=== PATIENT | female | born 1990 | race Caucasian/White ===

== ENCOUNTER 2020-12-10 07:54 | Inpatient (IN) ==
[2020-12-10] MEDS ORDERED: Buffered Lidocaine 1% SYRIN 1 ml INTRADERM ONE (09:01)
[2020-12-10] MEDS ORDERED: Lactated Ringers 1000 ml BAG 1,000 ML IV ONE (09:01)
[2020-12-10] MEDS ORDERED: Oxytocin in LR 0 UNITS/0 ML BAG IVPB ONE (09:39)
[2020-12-10 09:57] LABS: ABS Eosinophils 0.1 10^3/ul (0-0.6); ABS Lymphocytes 2.8 10^3/ul (1.0-4.8); ABS Monocytes 1.2 10^3/ul (0-0.8); ABS Neutrophils 18.3 10^3/ul (1.5-7.7); Eosinophil % 0.3 %; Hematocrit 40 % (35-47); Hemoglobin 13.7 g/dL (12.0-16.0); Lymphocyte % 12.3 %; Mean Corpuscular HGB Conc 35 g/dL (31-36); Mean Corpuscular Hemoglobin 33 pg (27-31); Mean Corpuscular Volume 95 fL (80-97); Mean Platelet Volume 8.2 fL (7.4-10.4); Platelet Count 309 10^3/uL (150-450); Red Blood Count 4.16 10^6 /uL (3.70-4.87); Red Cell Distribution Width 13 % (10-15); White Blood Count 22.3 10^3/uL (3.5-10.8)
[2020-12-10] MEDS ORDERED: Lactated Ringers 1000 ml BAG 1,000 ML IV SCH (10:00)
[2020-12-10 10:14] LABS: Urine Benzodiazepine Screen None Detected (None Detect); Urine Cannabinoids Screen None Detected (None Detect); Urine Opiates Screen None Detected (None Detect)
[2020-12-10] MEDS ORDERED: Witch Hazel PAD JAR TOPICAL PRN (10:40)
[2020-12-10] MEDS ORDERED: Dibucaine 1% OINT 28.35 GM TUBE PR PRN (10:40)
[2020-12-10] MEDS ORDERED: Lidocaine 1% VIAL 10 MG/ML VIAL ONE (11:00)
[2020-12-10] MEDS ORDERED: Ammonia Inhalant 1 EA AMP ONE (11:40)
[2020-12-11 07:42] LABS: ABS Basophils 0.1 10^3/ul (0-0.2); ABS Eosinophils 0.2 10^3/ul (0-0.6); ABS Lymphocytes 3.2 10^3/ul (1.0-4.8); ABS Monocytes 1.5 10^3/ul (0-0.8); ABS Neutrophils 13.9 10^3/ul (1.5-7.7); Eosinophil % 0.8 %; Hematocrit 34 % (35-47); Hemoglobin 12.1 g/dL (12.0-16.0); Mean Corpuscular HGB Conc 36 g/dL (31-36); Mean Corpuscular Hemoglobin 34 pg (27-31); Mean Corpuscular Volume 94 fL (80-97); Mean Platelet Volume 7.7 fL (7.4-10.4); Platelet Count 264 10^3/uL (150-450); Red Blood Count 3.57 10^6 /uL (3.70-4.87); Red Cell Distribution Width 13 % (10-15); White Blood Count 18.8 10^3/uL (3.5-10.8)
[2020-12-11 07:53] VITALS: BP 134/72
== END 2020-12-11 14:25 | disposition home or self-care (01) | DRG 560 ==
LOC: MCHOBOUT 07:54 → MCHOB 08:57
PROVIDERS: ADMIT Obstetrics & Gynecology; ATTEND Obstetrics & Gynecology